=== PATIENT | male | born 1990 | race American Indian/Alaskan Native ===

== ENCOUNTER 2020-07-17 19:04 | Emergency (ER) | payer SELFPAY ==
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
[2020-07-17 20:07] VITALS: BP 107/59
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
== END 2020-07-17 22:40 | disposition home or self-care (01) ==
LOC: ED 19:04
DX: S00.83XA Contusion of other part of head, initial encounter (principal); Y08.89XA Assault by other specified means, initial encounter; Y93.89 Activity, other specified; Y92.89 Other specified places as the place of occurrence of the external cause; Y99.8 Other external cause status
CPT/HCPCS: 70486; 99283